=== PATIENT | female | born 1960 | race Caucasian/White ===

== ENCOUNTER → 2016-10-03 | Outpatient (CLI) | payer OTHER ==
--- NOTE | 2016-10-03 16:14 | REP ---
Clinical: Neoplasm of the left ovary . Technique: Transabdominal pelvic ultrasound followed by transvaginal examination for better evaluation of the endometrium and adnexa with color Doppler evaluation of the ovaries. Findings: Bladder is unremarkable and measures 5.6 x 3.5 x 8.3 cm . Normal retroverted uterus measures 7.5 x 2.9 x 3.9 cm . The endometrial complex measures 2.3 mm thickness. Small amount of endocervical fluid is identified and nonspecific. No discrete uterine or endometrial abnormalities are appreciated. The right ovary is not visualized. Left ovary demonstrates normal vasculature without torsion. The Left ovary measures 3.3 x 2.4 x 2.6 cm and includes 2.7 x 2.1 x 1.6 cm complex cyst - possibly dermoid; R I left ovary = 0.45 . No pelvic fluid . Impression: 1. Complex 2.7 cm lesion in the left ovary/adnexa may represent dermoid versus complex physiologic cyst. Follow-up in 4 - 6 weeks may be warranted. Signed by Shahzad Villeda MD 10/03/2016 04:06 P
== END ==
LOC: M RAD 15:14
PROVIDERS: ATTEND Nurse Practitioner Women's Health
DX: D39.12 Neoplasm of uncertain behavior of left ovary (principal)

== ENCOUNTER → 2016-10-06 | Outpatient (CLI) | payer OTHER ==
[~2016-10-06] MED LIST: GASTROGRAFIN SOLUTION 30ML (Q9963) As Ordered ONE; ISOVUE-370 76% 100ML VIAL (Q9967) As Ordered ONE
--- NOTE | 2016-10-06 18:05 | REP ---
Clinical: Complex lesion possible dermoid in the left adnexa. Technique: Axial contrast enhanced images from the lung bases to the pubic symphysis using oral and 100 ml Isovue 370 intravenous contrast material with precontrast images of the abdomen as well as coronal and sagittal re-formations. Comparison: Pelvic ultrasound dated 10/03/2016. Findings: Lung bases demonstrate trace fibroatelectatic changes at the lingula. Visualized portions of the heart and pericardium are normal. Liver, spleen, pancreas, bilateral adrenal glands and kidneys are normal. Cholelithiasis noted without acute cholecystitis. The enteric system is without obstruction or acute inflammatory process and a normal terminal ileum and appendix are identified in the right lower quadrant. Pelvis demonstrates a normal bladder and age-appropriate uterus/adnexa. The previously suspected complex cyst in the left adnexa has resolved and likely represented physiologic cyst. No pelvic fluid. No ascites. No adenopathy. No free air. Vascular structures are normal. Musculoskeletal structures without focal osseous abnormality. Impression: 1. Prior complex cyst on Ultrasound has resolved and likely represented physiologic cyst. 2. No acute intra-abdominal or pelvic pathology appreciated. 3. Trace lingular fibroatelectatic changes. Signed by Shahzad Villeda MD 10/06/2016 05:56 P
== END ==
LOC: M RAD 15:29
PROVIDERS: ATTEND Nurse Practitioner Women's Health
DX: D39.12 Neoplasm of uncertain behavior of left ovary (principal)

== ENCOUNTER 2017-03-01 10:17 | Emergency (ER) | payer OTHER ==
[~2017-03-01] VITALS: Ht 165.1 cm; Wt 81.6 kg
[2017-03-01] MEDS ORDERED: HYDR10T (10:30)
[2017-03-01] MEDS ORDERED: ASPI1TAB PO (10:30)
[2017-03-01] MEDS ORDERED: OMEP40CA2 (10:30)
[2017-03-01] MEDS ORDERED: VENL150C43 (10:30)
[2017-03-01] MEDS ORDERED: QUET1TAB8 (10:30)
[2017-03-01] MEDS ORDERED: COUM1TAB17 (10:30)
[2017-03-01] MEDS ORDERED: BUPR100T3 (10:30)
[2017-03-01] MEDS ORDERED: ARIP1TAB4 (10:30)
[2017-03-01] MEDS ORDERED: ONDANSETRON 4MG/2ML VIAL (J2405) IV ONE (11:30)
[2017-03-01] MEDS ORDERED: NS 1,000 ML IV ONE (11:30)
[2017-03-01] MEDS ORDERED: KETOROLAC 30 MG/ML VIAL (J1885) IV ONE (11:30)
[2017-03-01 11:53] LABS: BASO % 0.3 % (0.0-1.0); EOS # 0.2 K/mm3 (0.0-0.50); EOS % 1.5 % (0.0-3.0); LARGE UNSTAINED CELL # 0.2 K/mm3 (0.0-0.4); LYMPH # 2.8 K/mm3 (1.5-4.5); LYMPH % 17.5 % (24.0-44.0); MEAN CORPUSCULAR HEMOGLOBIN 32.2 pg (27.0-33.0); MEAN CORPUSCULAR HGB CONC 33.6 g/dl (32.0-36.5); MEAN CORPUSCULAR VOLUME 95.9 fl (80.0-96.0); MONO # 0.6 K/mm3 (0.0-0.8); MONO % 3.6 % (0.0-5.0); NEUTROPHILS # 11.6 K/mm3 (1.8-7.7); NEUTROPHILS % 76.1 % (36.0-66.0); PLATELET COUNT, AUTOMATED 327 k/mm3 (150-450); RED CELL DISTRIBUTION WIDTH 12.8 % (11.5-14.5); WHITE BLOOD COUNT 15.2 K/mm3 (4.0-10.0)
[2017-03-01 12:16] LABS: INR 2.03
[2017-03-01 12:20] LABS: ALKALINE PHOSPHATASE 74 U/L (45-117); ALT/SGPT 22 U/L (12-78); AST/SGOT 19 U/L (15-37); BILIRUBIN,TOTAL 0.3 MG/DL (0.2-1.0); BLOOD UREA NITROGEN 10 MG/DL (7-18); CALCIUM LEVEL 8.7 MG/DL (8.5-10.1); CARBON DIOXIDE LEVEL 28 MEQ/L (21-32); CHLORIDE LEVEL 106 MEQ/L (98-107); CREATININE FOR GFR 0.96 MG/DL (0.55-1.02); GLOMERULAR FILTRATION RATE > 60.0 (>51); GLUCOSE, FASTING 110 MG/DL (70-105); SODIUM LEVEL 139 MEQ/L (136-145)
[2017-03-01 12:21] LABS: ALBUMIN 3.5 GM/DL (3.2-5.2); ALBUMIN/GLOBULIN RATIO 0.95 (1.00-1.93); BILIRUBIN,DIRECT < 0.1 MG/DL (0.0-0.2); TOTAL PROTEIN 7.2 GM/DL (6.4-8.2)
[2017-03-01] MEDS ORDERED: ISOVUE-370 76% 100ML VIAL (Q9967) As Ordered ONE (12:56)
--- NOTE | 2017-03-01 13:40 | REP ---
CT abdomen and pelvis with IV contrast, without bowel contrast: Comparison is 10/06/2016. The visualized lung griffiths demonstrate dependent atelectasis. There is chronic atelectasis at the inferior tip of the lingula, unchanged. The hepatic parenchyma is homogeneous and unchanged. There are multiple gallbladder calculi with rim calcification. This is unchanged. There is no evidence of acute cholecystitis or biliary duct dilatation. The pancreas, spleen, adrenals and kidneys are unremarkable. The abdominal aorta is unremarkable. There is wall thickening of the ascending colon and transverse colon compatible with colitis in the appropriate clinical setting. The appendix has a normal appearance. Pelvis: The uterus and adnexa are unremarkable except for a left adnexal follicle measuring 13 mm. Additionally, there is a focal low density nodule measuring 8 mm in the left adnexa, similar to the prior study, of fat density. This may represent a small dermoid in the left adnexa. There is no ascites or adenopathy. There are scattered diverticula in the sigmoid colon without evidence of diverticulitis. Impression: There is wall thickening compatible with colitis of the ascending colon in the appropriate clinical setting. The appendix has a normal appearance. There is diverticulosis without diverticulitis of the sigmoid colon. There is cholelithiasis, unchanged. There is a small fat density in the left ovary, unchanged from the prior study, possibly disability representative of a dermoid. Signed by Davon Miller MD 03/01/2017 01:31 P
[2017-03-01] MEDS ORDERED: LOMO2.5T PO (13:50)
[2017-03-01] MEDS ORDERED: ZOFR4TAB3 PO (13:52)
[2017-03-01] MEDS ORDERED: LOPE2EL PO (13:52)
[2017-03-01 14:09] VITALS: BP 114/59
== END 2017-03-01 14:24 | disposition home or self-care (01) ==
LOC: M ED 11:07
DX: K52.9 Noninfective gastroenteritis and colitis, unspecified (principal); K57.90 Diverticulosis of intestine, part unspecified, without perforation or abscess without bleeding; K80.20 Calculus of gallbladder without cholecystitis without obstruction; I51.9 Heart disease, unspecified; E66.9 Obesity, unspecified; Z95.2 Presence of prosthetic heart valve; Z79.01 Long term (current) use of anticoagulants; Z79.899 Other long term (current) drug therapy; Z88.5 Allergy status to narcotic agent; Z88.8 Allergy status to other drugs, medicaments and biological substances

== ENCOUNTER → 2017-07-12 | Outpatient (REF) | payer OTHER ==
[~2017-07-12] MED LIST changes: +ARIP1TAB4 PO; +ASPI1TAB PO; +BUPR100T3; +BUPR15TASR PO; +CEFD1CAP8 PO; +COUM1TAB17 PO; +EFFE75CA75 PO; -GASTROGRAFIN SOLUTION 30ML (Q9963) As Ordered ONE; +HYDR-643 PO; -ISOVUE-370 76% 100ML VIAL (Q9967) As Ordered ONE; +LOMO2.5T PO; +LOPE2EL PO; +OMEP20CA3 PO; +OMEP40CA2; +QUET1TAB10 PO; +QUET1TAB8; +RISP2TAB3 PO; +VENL150C43; +VITMTA PO; +ZOFR4TAB3 PO
== END ==
LOC: M SFHCCLAY 09:34
PROVIDERS: ATTEND Nurse Practitioner
DX: N30.90 Cystitis, unspecified without hematuria (principal)

== ENCOUNTER 2017-09-12 13:42 | Emergency (ER) | payer OTHER ==
[~2017-09-12] VITALS: Ht 165.1 cm; Wt 93.2 kg
[2017-09-12] MEDS ORDERED: ALBUTEROL SULFATE 2.5 MG/0.5 ML INH NEB SOLN NEB ONE (15:15)
[2017-09-12] MEDS ORDERED: LEVA750T7 PO (16:30)
[2017-09-12] MEDS ORDERED: TESS100C PO (16:33)
[2017-09-12 16:45] VITALS: BP 141/68
--- NOTE | 2017-09-12 23:03 | REP ---
CHEST, TWO VIEWS: No comparison. Two views of the chest are performed. There is some alveolar infiltrate in the inferior aspect of the right upper lobe. There is bibasilar fibroatelectatic change. Heart is normal in size. There is a prosthetic heart valve. There are multiple sternal wire present. IMPRESSION: Right upper lobe infiltrate. Bibasilar fibroatelectatic change. Signed by Davon Diop MD 09/13/2017 08:33 P
== END 2017-09-12 16:46 | disposition home or self-care (01) ==
LOC: M ED 13:42
DX: J18.1 Lobar pneumonia, unspecified organism (principal); R05 Cough; F41.9 Anxiety disorder, unspecified; F32.9 Major depressive disorder, single episode, unspecified; F17.200 Nicotine dependence, unspecified, uncomplicated; Z95.4 Presence of other heart-valve replacement; Z79.82 Long term (current) use of aspirin; Z79.899 Other long term (current) drug therapy; Z79.01 Long term (current) use of anticoagulants; Z88.5 Allergy status to narcotic agent

== ENCOUNTER 2017-10-13 10:59 | Emergency (ER) | payer OTHER ==
[2017-10-13] MEDS: ONDANSETRON 4MG/2ML VIAL (J2405) IV (12:00)
[2017-10-13] MEDS: NS 500 ML IV (12:00)
[2017-10-13] MEDS: ACETAMINOPHEN TAB 650MG DOSE (2X325MG) PO (12:22)
[2017-10-13 12:37] LABS: BASO % 0.3 % (0.0-1.0); EOS # 0.1 10^3/uL (0.0-0.50); EOS % 1.2 % (0.0-3.0); HEMATOCRIT 42.8 % (36.0-47.0); HEMOGLOBIN 13.8 g/dl (12.0-16.0); IMMATURE GRANULOCYTE % 0.4 % (0-0); LYMPH # 2.9 10^3/uL (1.5-4.5); LYMPH % 26.6 % (24.0-44.0); MEAN CORPUSCULAR HEMOGLOBIN 30.6 pg (27.0-33.0); MEAN CORPUSCULAR HGB CONC 32.2 g/dl (32.0-36.5); MEAN CORPUSCULAR VOLUME 94.9 fl (80.0-96.0); MONO # 0.9 10^3/uL (0.0-0.8); MONO % 8.1 % (0.0-5.0); NEUTROPHILS # 6.8 10^3/uL (1.8-7.7); NEUTROPHILS % 63.4 % (36.0-66.0); PLATELET COUNT, AUTOMATED 357 10^3/uL (150-450); RED BLOOD COUNT 4.51 10^6/uL (4.00-5.40); RED CELL DISTRIBUTION WIDTH 13.3 % (11.5-14.5); WHITE BLOOD COUNT 10.7 10^3/uL (4.0-10.0)
[2017-10-13 12:52] LABS: PROTHROMBIN TIME 59.6 SECONDS (12.4-14.5)
[2017-10-13 12:54] LABS: PARTIAL THROMBOPLASTIN TIME 106.6 SECONDS (26.8-37.9)
[2017-10-13 12:56] LABS: ANION GAP 8 MEQ/L (8-16); BLOOD UREA NITROGEN 12 MG/DL (7-18); CALCIUM LEVEL 8.6 MG/DL (8.5-10.1); CARBON DIOXIDE LEVEL 26 MEQ/L (21-32); CHLORIDE LEVEL 107 MEQ/L (98-107); CREATININE FOR GFR 0.96 MG/DL (0.55-1.02); GLOMERULAR FILTRATION RATE > 60.0 (>51); GLUCOSE, FASTING 97 MG/DL (70-105); POTASSIUM SERUM 4.4 MEQ/L (3.5-5.1); SODIUM LEVEL 141 MEQ/L (136-145)
[2017-10-13 13:01] LABS: INR 6.33
[2017-10-13] MEDS: MORPHINE 2 MG/ML 1ML SYRINGE IV (13:30)
== END 2017-10-13 14:13 | disposition home or self-care (01) ==
LOC: M ED 10:59
DX: S93.402A Sprain of unspecified ligament of left ankle, initial encounter (principal); S93.602A Unspecified sprain of left foot, initial encounter; W10.9XXA Fall (on) (from) unspecified stairs and steps, initial encounter; Y92.099 Unspecified place in other non-institutional residence as the place of occurrence of the external cause; Y93.89 Activity, other specified; N10 Acute pyelonephritis; F32.9 Major depressive disorder, single episode, unspecified; M75.51 Bursitis of right shoulder; K21.9 Gastro-esophageal reflux disease without esophagitis; Z95.2 Presence of prosthetic heart valve; F17.200 Nicotine dependence, unspecified, uncomplicated; Z80.1 Family history of malignant neoplasm of trachea, bronchus and lung; Z79.01 Long term (current) use of anticoagulants; Z79.899 Other long term (current) drug therapy; Z88.5 Allergy status to narcotic agent
CPT/HCPCS: J2405

== ENCOUNTER → 2023-10-15 | Outpatient (CLI) | payer OTHER ==
[~2023-10-15] MED LIST changes: +ACET-716 PO; -ASPI1TAB PO; +ASPI81TA26 PO; +BUPR-70; -BUPR100T3; -CEFD1CAP8 PO; +CEFD1CAP9 PO; +EFFE75CA2 PO; -EFFE75CA75 PO; +LEVA750T7 PO; +OMEP1CAP73 PO; -OMEP20CA3 PO; -OMEP40CA2; +OMEP40CA4; +QUET100T2; -QUET1TAB10 PO; -QUET1TAB8; +QUET300T2 PO; +RISP-9 PO; -RISP2TAB3 PO; +TESS100C PO; +ZOFR4TAB14 PO; -ZOFR4TAB3 PO
[2023-10-15 13:09] LABS: INR 2.48; PROTHROMBIN TIME 25.9 SECONDS (12.5-14.5)
== END ==
LOC: M LAB 11:37
PROVIDERS: ATTEND Internal Medicine Cardiovascular Disease
DX: Z95.2 Presence of prosthetic heart valve (principal); Z79.01 Long term (current) use of anticoagulants

== ENCOUNTER → 2023-10-18 | Outpatient (CLI) | payer OTHER ==
[2023-10-18 12:58] LABS: INR 2.02; PROTHROMBIN TIME 22.2 SECONDS (12.5-14.5)
== END ==
LOC: M LAB 12:23
PROVIDERS: ATTEND Internal Medicine Cardiovascular Disease
DX: Z95.2 Presence of prosthetic heart valve (principal)

== ENCOUNTER → 2023-10-26 | Outpatient (CLI) | payer OTHER ==
[~2023-10-26] MED LIST changes: +RISP-106 PO; -RISP-9 PO
[2023-10-26 12:09] LABS: INR 1.24; PROTHROMBIN TIME 15.3 SECONDS (12.5-14.5)
== END ==
LOC: M LAB 11:19
PROVIDERS: ATTEND Internal Medicine Cardiovascular Disease
DX: Z79.01 Long term (current) use of anticoagulants (principal); Z95.2 Presence of prosthetic heart valve

== ENCOUNTER → 2024-02-15 | Outpatient (CLI) | payer SELFPAY ==
[2024-02-15 14:48] LABS: INR 2.43; PROTHROMBIN TIME 25.6 SECONDS (12.5-14.5)
== END ==
LOC: M LAB 13:48
PROVIDERS: ATTEND Internal Medicine Cardiovascular Disease
DX: Z79.01 Long term (current) use of anticoagulants (principal); Z95.2 Presence of prosthetic heart valve

== ENCOUNTER → 2024-02-22 | Outpatient (CLI) | payer SELFPAY ==
[2024-02-22 09:33] LABS: INR 1.94; PROTHROMBIN TIME 21.5 SECONDS (12.5-14.5)
== END ==
LOC: M LAB 08:55
PROVIDERS: ATTEND Internal Medicine Cardiovascular Disease
DX: Z95.2 Presence of prosthetic heart valve (principal); Z79.01 Long term (current) use of anticoagulants

== ENCOUNTER → 2024-02-29 | Outpatient (CLI) | payer OTHER ==
[2024-02-29 11:03] LABS: INR 2.49
== END ==
LOC: M LAB 09:06
PROVIDERS: ATTEND Internal Medicine Cardiovascular Disease
DX: Z95.2 Presence of prosthetic heart valve (principal); Z79.01 Long term (current) use of anticoagulants

== ENCOUNTER 2024-03-05 11:25 | Emergency (ER) | payer OTHER ==
[~2024-03-05] VITALS: Ht 167.6 cm; Wt 76.8 kg
[2024-03-05 11:25] VITALS: BP 138/74; TEMP 97.6; O2SAT 97
[2024-03-05 12:03] LABS: BASO # 0.1 10^3/uL (0.0-0.2); BASO % 0.5 % (0.0-1.0); EOS # 0.2 10^3/uL (0.0-0.5); EOS % 2.1 % (0.0-3.0); HEMATOCRIT 44.3 % (36.0-47.0); HEMOGLOBIN 14.8 g/dl (12.0-15.5); LYMPH # 2.1 10^3/uL (1.5-5.0); LYMPH % 21.8 % (24.0-44.0); MEAN CORPUSCULAR HEMOGLOBIN 32.5 pg (27.0-33.0); MEAN CORPUSCULAR HGB CONC 33.4 g/dl (32.0-36.5); MEAN CORPUSCULAR VOLUME 97.4 fl (80.0-96.0); MONO # 0.5 10^3/uL (0.0-0.8); MONO % 5.4 % (2.0-8.0); NEUTROPHILS # 6.6 10^3/uL (1.5-8.5); NEUTROPHILS % 69.7 % (36.0-66.0); PLATELET COUNT, AUTOMATED 362 10^3/uL (150-450); RED BLOOD COUNT 4.55 10^6/uL (4.00-5.40); WHITE BLOOD COUNT 9.5 10^3/uL (4.0-10.0)
[2024-03-05] MEDS ORDERED: DOXY-323 PO (12:39)
[2024-03-07 18:16] LABS: LYME TOTAL ANTIBODY CIA <= 0.90 Index (<=0.90)
== END 2024-03-05 12:43 | disposition home or self-care (01) ==
LOC: M ED 11:25
DX: S20.161A Insect bite (nonvenomous) of breast, right breast, initial encounter (principal); E78.5 Hyperlipidemia, unspecified; G47.33 Obstructive sleep apnea (adult) (pediatric); F41.9 Anxiety disorder, unspecified; F32.A Depression, unspecified; F17.200 Nicotine dependence, unspecified, uncomplicated; F10.10 Alcohol abuse, uncomplicated; Z79.82 Long term (current) use of aspirin; Z79.01 Long term (current) use of anticoagulants; Z88.5 Allergy status to narcotic agent; Z88.8 Allergy status to other drugs, medicaments and biological substances; Z79.899 Other long term (current) drug therapy

== ENCOUNTER → 2024-03-07 | Outpatient (CLI) | payer OTHER ==
[~2024-03-07] MED LIST changes: +DOXY-323 PO
[2024-03-07 10:00] LABS: INR 2.87
== END ==
LOC: M LAB 08:41
PROVIDERS: ATTEND Internal Medicine Cardiovascular Disease
DX: Z95.2 Presence of prosthetic heart valve (principal); Z79.01 Long term (current) use of anticoagulants

== ENCOUNTER → 2024-03-24 | Outpatient (CLI) | payer OTHER ==
[2024-03-24 09:44] LABS: INR 3.67; PROTHROMBIN TIME 35.1 SECONDS (12.5-14.5)
== END ==
LOC: M LAB 08:15
PROVIDERS: ATTEND Internal Medicine Cardiovascular Disease
DX: Z95.2 Presence of prosthetic heart valve (principal)

== ENCOUNTER → 2024-04-08 | Outpatient (CLI) | payer OTHER ==
[2024-04-08 16:22] LABS: INR 3.05; PROTHROMBIN TIME 30.4 SECONDS (12.5-14.5)
== END ==
LOC: M LAB 15:28
PROVIDERS: ATTEND Internal Medicine Cardiovascular Disease
DX: Z95.2 Presence of prosthetic heart valve (principal); Z79.01 Long term (current) use of anticoagulants

== ENCOUNTER → 2024-04-30 | Outpatient (CLI) | payer OTHER ==
[2024-04-30 11:39] LABS: INR 2.76; PROTHROMBIN TIME 28.2 SECONDS (12.5-14.5)
== END ==
LOC: M LAB 10:15
PROVIDERS: ATTEND Internal Medicine Cardiovascular Disease
DX: Z95.2 Presence of prosthetic heart valve (principal); Z79.01 Long term (current) use of anticoagulants

== ENCOUNTER 2024-05-13 19:19 | Emergency (ER) | payer OTHER ==
[~2024-05-13] VITALS: Ht 165.1 cm; Wt 79.4 kg
[2024-05-13 19:21] VITALS: TEMP 99.7
[2024-05-13 21:20] LABS: INR 2.58; PARTIAL THROMBOPLASTIN TIME 43.4 SECONDS (24.8-34.2); PROTHROMBIN TIME 26.7 SECONDS (12.5-14.5)
[2024-05-13] MEDS: SILVER NITRATE APPLICATOR (1 = QTY 10) TOP ONE (22:05)
[2024-05-13 22:30] VITALS: BP 113/57; O2SAT 96
== END 2024-05-13 22:47 | disposition home or self-care (01) ==
LOC: M ED 19:19
DX: S01.531A Puncture wound without foreign body of lip, initial encounter (principal); W01.119A Fall on same level from slipping, tripping and stumbling with subsequent striking against unspecified sharp object, initial encounter; F32.A Depression, unspecified; F41.9 Anxiety disorder, unspecified; E11.9 Type 2 diabetes mellitus without complications; K21.9 Gastro-esophageal reflux disease without esophagitis; G56.00 Carpal tunnel syndrome, unspecified upper limb; Z88.5 Allergy status to narcotic agent; Z88.8 Allergy status to other drugs, medicaments and biological substances; Z79.01 Long term (current) use of anticoagulants; Z79.83 Long term (current) use of bisphosphonates; Z79.899 Other long term (current) drug therapy; Z79.1 Long term (current) use of non-steroidal anti-inflammatories (NSAID); Y92.009 Unspecified place in unspecified non-institutional (private) residence as the place of occurrence of the external cause; Y93.89 Activity, other specified; Y99.9 Unspecified external cause status

== ENCOUNTER → 2024-05-16 | Outpatient (CLI) | payer OTHER ==
[2024-05-16 11:24] LABS: INR 3.99; PROTHROMBIN TIME 37.4 SECONDS (12.5-14.5)
== END ==
LOC: M LAB 10:30
PROVIDERS: ATTEND Internal Medicine Cardiovascular Disease
DX: Z79.01 Long term (current) use of anticoagulants (principal); Z95.2 Presence of prosthetic heart valve

== ENCOUNTER → 2024-05-27 | Outpatient (CLI) | payer SELFPAY ==
[2024-05-27 09:24] LABS: INR 2.56; PROTHROMBIN TIME 26.6 SECONDS (12.5-14.5)
== END ==
LOC: M LAB 07:47
PROVIDERS: ATTEND Internal Medicine Cardiovascular Disease
DX: Z95.2 Presence of prosthetic heart valve (principal); Z79.01 Long term (current) use of anticoagulants

== ENCOUNTER → 2024-05-30 | Outpatient (CLI) | payer OTHER | LOC: M RAD 12:27 | PROVIDERS: ATTEND Family Medicine | DX: N83.292 Other ovarian cyst, left side (principal) ==

== ENCOUNTER → 2024-06-04 | Outpatient (CLI) | payer OTHER ==
[~2024-06-04] MED LIST changes: -DOXY-323 PO; +DOXY-441 PO
[2024-06-04 09:47] LABS: INR 1.81; PROTHROMBIN TIME 20.4 SECONDS (12.5-14.5)
== END ==
LOC: M LAB 09:05
PROVIDERS: ATTEND Internal Medicine Cardiovascular Disease
DX: Z95.2 Presence of prosthetic heart valve (principal); Z79.01 Long term (current) use of anticoagulants

== ENCOUNTER 2024-06-30 08:25 | Emergency (ER) | payer OTHER ==
[~2024-06-30] VITALS: Ht 165.1 cm; Wt 82.0 kg
[2024-06-30 09:38] LABS: BASO # 0.1 10^3/uL (0.0-0.2); BASO % 0.8 % (0.0-1.0); EOS # 0.1 10^3/uL (0.0-0.5); EOS % 2.3 % (0.0-3.0); HEMATOCRIT 45.3 % (36.0-47.0); LYMPH # 1.7 10^3/uL (1.5-5.0); LYMPH % 29.1 % (24.0-44.0); MEAN CORPUSCULAR HEMOGLOBIN 32.4 pg (27.0-33.0); MEAN CORPUSCULAR HGB CONC 33.1 g/dl (32.0-36.5); MEAN CORPUSCULAR VOLUME 97.8 fl (80.0-96.0); MONO # 0.6 10^3/uL (0.0-0.8); MONO % 9.7 % (2.0-8.0); NEUTROPHILS # 3.5 10^3/uL (1.5-8.5); NEUTROPHILS % 57.9 % (36.0-66.0); PLATELET COUNT, AUTOMATED 281 10^3/uL (150-450); RED BLOOD COUNT 4.63 10^6/uL (4.00-5.40)
[2024-06-30 10:04] LABS: ALBUMIN 3.7 G/DL (3.2-5.2); ALKALINE PHOSPHATASE 63 U/L (46-116); ALT/SGPT 20 U/L (7.0-40); AST/SGOT 16 U/L (<34); BILIRUBIN,DIRECT < 0.1 MG/DL (<0.4); BILIRUBIN,TOTAL 0.3 MG/DL (0.3-1.2); BLOOD UREA NITROGEN 15 MG/DL (9-23); CALCIUM LEVEL 9.3 MG/DL (8.3-10.6); CARBON DIOXIDE LEVEL 26 MMOL/L (20-31); CHLORIDE LEVEL 108 MMOL/L (98-107); CREATININE FOR GFR 0.97 MG/DL (0.55-1.30); GLOMERULAR FILTRATION RATE > 60.0 (>45); GLUCOSE, FASTING 116 MG/DL (74-106); SODIUM LEVEL 138 MMOL/L (136-145); TOTAL PROTEIN 6.6 G/DL (5.7-8.2)
[2024-06-30 10:12] LABS: INR 3.53
[2024-06-30 11:07] VITALS: BP 128/61; TEMP 98; O2SAT 98
== END 2024-06-30 11:13 | disposition home or self-care (01) ==
LOC: M ED 08:25
DX: B34.1 Enterovirus infection, unspecified (principal); B34.8 Other viral infections of unspecified site; E11.9 Type 2 diabetes mellitus without complications; Z88.5 Allergy status to narcotic agent; Z79.01 Long term (current) use of anticoagulants; Z79.1 Long term (current) use of non-steroidal anti-inflammatories (NSAID); Z79.899 Other long term (current) drug therapy

== ENCOUNTER → 2024-06-30 | Outpatient (CLI) | payer OTHER, SELFPAY ==
[2024-06-30 08:41] LABS: INR 3.67; PROTHROMBIN TIME 35.1 SECONDS (12.5-14.5)
== END ==
LOC: M LAB 07:23
PROVIDERS: ATTEND Internal Medicine Cardiovascular Disease
DX: Z95.2 Presence of prosthetic heart valve (principal); Z79.01 Long term (current) use of anticoagulants

== ENCOUNTER → 2024-07-12 | Outpatient (CLI) | payer OTHER, SELFPAY ==
[2024-07-12 10:03] LABS: INR 2.14; PROTHROMBIN TIME 23.2 SECONDS (12.5-14.5)
== END ==
LOC: M LAB 08:10
PROVIDERS: ATTEND Internal Medicine Cardiovascular Disease
DX: Z95.2 Presence of prosthetic heart valve (principal); Z79.01 Long term (current) use of anticoagulants

== ENCOUNTER → 2024-07-30 | Outpatient (CLI) | payer OTHER, SELFPAY ==
[2024-07-30 08:36] LABS: INR 3.14; PROTHROMBIN TIME 32.1 SECONDS (12.5-14.5)
== END ==
LOC: M LAB 07:40
PROVIDERS: ATTEND Internal Medicine Cardiovascular Disease
DX: Z95.2 Presence of prosthetic heart valve (principal); Z79.01 Long term (current) use of anticoagulants

== ENCOUNTER → 2024-12-03 | Outpatient (CLI) | payer MEDICARE, OTHER, SELFPAY ==
[2024-12-03 11:57] LABS: INR 1.4; PROTHROMBIN TIME 17.4 SECONDS (12.5-14.5)
== END ==
LOC: M LAB 11:13
PROVIDERS: ATTEND Internal Medicine Cardiovascular Disease
DX: Z95.2 Presence of prosthetic heart valve (principal); Z79.01 Long term (current) use of anticoagulants

== ENCOUNTER → 2025-02-10 | Outpatient (CLI) | payer MEDICARE ==
[2025-02-10 10:13] LABS: INR 1.9
== END ==
LOC: M LAB 09:25
PROVIDERS: ATTEND Internal Medicine Cardiovascular Disease
DX: Z79.01 Long term (current) use of anticoagulants (principal); Z95.2 Presence of prosthetic heart valve

== ENCOUNTER → 2025-05-15 | Outpatient (CLI) | payer MEDICARE ==
[2025-05-15 09:13] LABS: INR 2.23
== END ==
LOC: M LAB 08:12
PROVIDERS: ATTEND Internal Medicine Cardiovascular Disease
DX: Z79.01 Long term (current) use of anticoagulants (principal); Z95.2 Presence of prosthetic heart valve

== ENCOUNTER → 2025-05-21 | Outpatient (CLI) | payer MEDICARE ==
[2025-05-21 07:31] LABS: INR 1.61
== END ==
LOC: M LAB 07:00
PROVIDERS: ATTEND Internal Medicine Cardiovascular Disease
DX: Z79.01 Long term (current) use of anticoagulants (principal); Z95.2 Presence of prosthetic heart valve

== ENCOUNTER → 2025-07-31 | Outpatient (CLI) | payer MEDICARE ==
[2025-07-31 11:28] LABS: INR 2.35
== END ==
LOC: M LAB 10:06
PROVIDERS: ATTEND Internal Medicine Cardiovascular Disease
DX: Z51.81 Encounter for therapeutic drug level monitoring (principal); Z79.01 Long term (current) use of anticoagulants; Z95.2 Presence of prosthetic heart valve